=== PATIENT | female | born 1945 | race Caucasian/White ===

== ENCOUNTER 2018-07-03 01:17 | Emergency (ER) | payer MEDICARE, BC, SELFPAY ==
[2018-07-03 01:18] VITALS: BP 185/90; PULSE 76; RESP 16; TEMP 36.6; O2SAT 92; BMI 32.8
--- NOTE | 2018-07-03 02:55 | ED.DEP ---
ED Disposition - Plan for ED Patient: Instructions: ED Sciatica, ED Knee Pain [facility] Prescriptions: Hydrocodone Bitart/Apap 5-325 [[place] 5MG-325MG] 1 tablet PO Q6H PRN PRN 3 Days #12 tablet PRN Reason: Pain predniSONE tablet 60 mg PO DAILY #15 tablet Referrals: Janet Resendez MD [Primary Care Provider] -
[2018-07-03] MEDS: HYDROcodone Bitartrate/Apap 5/325 Tablet PO (02:59)
[2018-07-03 03:00] VITALS: PULSE 75; O2SAT 94
--- NOTE | 2018-07-03 03:52 | ED.VISSUMM ---
- ER Visit Summary Date of Service: 07/03/18 Chief Complaint: Left hip and knee pain. History of Present Illness: The patient is a 72 F who presents with left leg pain. She complains about 1 week of intermittent pain beginning in her left groin and radiating down her thigh and occasionally all the way down her leg. She states this feels like nerve pain and is burning. She also has a history of arthritis and complains of aching pain in her left knee which was worse today. She is on meloxicam. She also took Motrin. She has had some recent congestion and rhinorrhea but review of systems otherwise negative. No fevers. No fall or trauma. Physical Examination: Afebrile vitals notable for blood pressure 185/90 No distress Heart regular Rest distress Active full range of motion of the left lower extremity no focal bony tenderness no effusion of the knee she has normal sensation distally brisk capillary refill and palpable symmetric dorsalis pedis pulses. Test Results: Not indicated Emergency Department Course and Treatment: I suspect the patient may have 2 processes going on. I suspect her left knee pain is related to her arthritis. She states that that pain does feel similar to her prior arthritis. I also suspect that her pain from her hip down her leg is related to radiculopathy. She was given prescriptions for [place] as well as a prednisone burst. She was advised to follow-up with her primary care physician. She understands to return for new or worsening symptoms. She was discharged. Treatment Plan: [] Disposition: Discharge Impression: Lumbar radiculopathy Left knee pain This note was generated with [employer]™ dictation software. It may contain incorrect words, spelling, and punctuation that were not noted in review of the chart prior to signing ED Disposition - Plan for ED Patient: Disposition: Home or Assisted Living Instructions: ED Knee Pain [facility], ED Sciatica Prescriptions: Hydrocodone Bitart/Apap 5-325 [[place] 5MG-325MG] 1 tab PO Q6H PRN PRN 3 Days #12 tab PRN Reason: Pain predniSONE tablet 60 mg PO DAILY #15 tab Referrals: Janet Resendez MD [Primary Care Provider] -
== END 2018-07-03 03:05 | disposition home or self-care (01) ==
PROVIDERS: Emergency Provider Emergency Medicine; Family Provider Internal Medicine; PCP Internal Medicine
DX: M54.16 Radiculopathy, lumbar region (principal); M25.562 Pain in left knee; R09.81 Nasal congestion; J34.89 Other specified disorders of nose and nasal sinuses; M19.90 Unspecified osteoarthritis, unspecified site; M48.00 Spinal stenosis, site unspecified; Z79.899 Other long term (current) drug therapy
CPT/HCPCS: 99283